=== PATIENT | female | born 1960 | race Caucasian/White ===

== ENCOUNTER 2019-01-20 06:18 | Inpatient (IN) | payer OTHER ==
--- NOTE | 2019-01-19 06:51 | PREOPHP ---
DATE OF ADMISSION: 01/20/2019 HISTORY OF PRESENT ILLNESS: ____ a 57-year-old female, 3, para 3, abortions 1 with 3 living children. The patient had a set of twins. This patient was referred to me due to a failed bladder p rolapse repair that was done 3 years ago. She is experiencing urgency and she has been using a pessa ry for 4 to 5 years. She is having pelvic pressure, pelvic pain. Her uterus is nonprolapsed and she works standing up. She would like to not have to use a pessary and have her problem surgically fixe d. The patient has a history of a and hypertension and an ectopic at which time she had an exploratory laparotomy and that was her . ALLERGIES: THE PATIENT IS NOT ALLERGIC TO ANY MEDICATIONS. MEDICATIONS: She takes Norvasc 5 mg for her hypertension and that controlled her blood pressure. FAMILY HISTORY: Diabetes, hypertension in both parents. REVIEW OF SYSTEMS: Negative for cardiovascular event as heart attack, negative for lung disease, no GI disease, no endocrine disease. SOCIAL HISTORY: No history of drugs, smoking or drinking. PHYSICAL EXAMINATION: VITAL SIGNS: The patient's ____ is good. Blood pressure is 150/80. She weighs 158 and she is 5 fee t 1 inch. The patient is afebrile. HEAD AND NECK: Normal. CHEST: Clear. HEART: Normal sinus rhythm. LUNGS: Clear. BREASTS: Soft, nontender, no masses. ABDOMEN: Soft, nontender, no masses. GENITALIA: With a large ____ and vaginal atrophy. Uterus normal in size, nonprolapsed, and she has a rectocele, that is mild, with some constipation. EXTREMITIES: Normal. DIAGNOSES: 1. 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 2. Rectocele, mild. PLAN: She is undergoing an anterior repair ____ with a sling and a graft. The patient will be evalu ated in surgery for a posterior repair that will be decided at that time. Since her symptoms are not strong ____ she will have to come back in the future, she would rather have it done appropriately r ight now. We will see if the posterior repair is necessary or not pending relaxation of the area und er anesthesia. So, the proposed surgery is anterior repair with a sling with a graft and possible pos terior repair. She has been advised of the possible risks and possible complications of the procedur e with her alternatives and options. Written information was provided. She had no more questions an d agreed to go ahead with the procedure with full understanding and no more questions. Possible comp lications were given with the possible risks and possible complications of the sling were also explai latoya to the patient, and she agreed to go ahead with the procedure with full understanding and no more questions. Dictated By: CAMERON JJ MD [facility] Conf#: [id number] DID#: [id number]
[2019-01-19 15:38] VITALS: BMI 29.6
[~2019-01-20] VITALS: Ht 154.9 cm; Wt 69.9 kg
[2019-01-20] VITALS (22 sets, daily range): BP systolic 101–143; BP diastolic 52–72; PULSE 53–95; RESP 14–20; Ht 154.9 cm; Wt 69.9 kg
[2019-01-20] MEDS ORDERED: AMLO5TAB4 PO (06:56)
[2019-01-20] MEDS ORDERED: CIPR500T4 PO (06:56)
[2019-01-20] MEDS ORDERED: SIMV20TA PO (06:56)
[2019-01-20] MEDS ORDERED: CEFAZOLIN 2 GM/50 ML (PMX) 50 ML IVPB ONE (07:00)
--- NOTE | 2019-01-20 07:57 | HPN ---
Date/Time of Note Date/Time of Note DATE: 01/20/19 TIME: 07:57 Interval H&P Admission Note Pt. seen H&P reviewed: No system changes CAMERON JJ MD January 20, 2019 07:57
--- NOTE | 2019-01-20 07:59 | PREAC ---
Date/Time of Note Date/Time of Note DATE: 01/20/19 TIME: 07:56 Anesthesia Eval and Record Evaluation Time Pre-Procedure Interview DATE: 01/20/19 TIME: 07:56 Age 58 Sex female NPO: 8 hrs Preoperative diagnosis Gentital prolase Planned procedure Anterior- Posterior repair Past Medical History Past Medical History: Includes Cardio: Dyslipidemia GI: Morbid obesity Surgery & Anesthesia Issues No known issue Meds Anticoagulation: No Beta Prakash within 24 hr: No Reason Beta Prakash not given: Pt. not on B-Prakash Reported Medications Simvastatin* (Zocor*) 20 Mg Tablet, 20 MG PO QHS, #30 TAB 01/20/19 Amlodipine Besylate* (Norvasc*) 5 Mg Tablet, 5 MG PO DAILY, TAB 01/20/19 Ciprofloxacin Hcl* (Ciprofloxacin Hcl*) 500 Mg Tablet, 500 MG PO BID, #14 TAB 01/20/19 Meds reviewed: Yes Allergies Coded Allergies: No Known Allergy (Verified , 01/20/19) Uncoded Allergies: SPINAL ANESTHESIA (Allergy, Mild, DON'T REMEMBER, 02/15/08) Allergies Reviewed: Yes Labs/Studies Labs Reviewed: Reviewed by anesthesiologist test: N/A Studies: ECG Pre-procedure Exam Last vitals Vital Signs Date Temp Pulse Resp B/P (MAP) Pulse Ox O2 O2 Flow FiO2 Time Delivery Rate 01/20/19 97.8 95 16 143/72 98 06:20 (95) Airway: Adequate mouth opening, Adequate thyromental dist Mallampati: Mallampati II Teeth: Normal Lung: Normal Heart: Normal ASA Physical Status ASA physical status: 3 Emergency: None Planned Anesthetic General/MAC: LMA Neuraxial: Spinal Planned Pain Management Sub-arachniod narcotics, Parenteral pain med Pre-operative Attestations Prior to commencing anesthesia and surgery, the patient was re-evaluated, there was verification of: *The patient's identity *The results of appropriate recent lab work and preoperative vital signs *The above evaluation not changing prior to induction *Anesthetic plan, risk benefits, alternative and complications discussed with patient/family; questions answered; patient/family understands, accepts and wishes to proceed. ELICEO LUNA MD January 20, 2019 07:59
[2019-01-20] MEDS ORDERED: FENTAnyl 50 MCG/ML VIAL ONE (08:08)
[2019-01-20] MEDS ORDERED: morphine SULFATE/PF (10 MG/10 ML) INJ ONE (08:08)
[2019-01-20] MEDS ORDERED: MIDAZOLAM 1 MG/ML 2 ML INJ ONE (08:08)
[2019-01-20] MEDS ORDERED: BUPIVACAINE 0.25%/EPI (SDV) 30 ML INJ ONE (08:42)
[2019-01-20] MEDS ORDERED: POLYMYXIN/BACITRACIN 1L IRRIG ONE (08:42)
[2019-01-20] MEDS ORDERED: ONDANSETRON 4 MG INJ ONE (09:51)
[2019-01-20] MEDS ORDERED: CEFAZOLIN 1 GM INJ ONE (09:51)
[2019-01-20] MEDS ORDERED: LIDOCAINE 2% (SDV) 5 ML INJ ONE (09:51)
[2019-01-20] MEDS ORDERED: PROPOFOL 20 ML ONE (09:51)
[2019-01-20] MEDS ORDERED: ONDANSETRON 4 MG INJ IV PRN (10:00)
[2019-01-20] MEDS ORDERED: KETOROLAC 30 MG INJ IV PRN (10:00)
[2019-01-20] MEDS ORDERED: DIPHENHYDRAMINE 50 MG INJ IV PRN (10:00)
[2019-01-20] MEDS ORDERED: NALOXONE (0.4 MG/ML) INJ IV PRN (10:00)
[2019-01-20] MEDS ORDERED: METOCLOPRAMIDE 10 MG INJ IV PRN (10:00)
[2019-01-20] MEDS ORDERED: MEPERIDINE 25 MG INJ IV PRN (10:00)
[2019-01-20] MEDS ORDERED: DIPHENHYDRAMINE 50 MG CAP PO PRN (10:00)
[2019-01-20] MEDS ORDERED: HYDROmorphONE 1 MG/5 ML IV SYRINGE IV PRN ×2 (10:00)
[2019-01-20] MEDS ORDERED: ONDANSETRON INJ 6 MG in DEXTROSE 5% 50 ML IVPB PRN (10:00)
[2019-01-20] MEDS ORDERED: HYDROCODONE/APAP (5/325) TAB PO PRN ×2 (10:00)
[2019-01-20] MEDS ORDERED: FENTAnyl 50 MCG/ML VIAL IV PRN (10:00)
[2019-01-20] MEDS ORDERED: ZOLPIDEM 5 MG TAB PO PRN (10:00)
--- NOTE | 2019-01-20 10:00 | PAC ---
Date/Time of Note Date/Time of Note DATE: 01/20/19 TIME: 09:59 Post-Anesthesia Notes Post-Anesthesia Note Last documented vital signs Vital Signs Date Temp Pulse Resp B/P (MAP) Pulse Ox O2 O2 Flow FiO2 Time Delivery Rate 01/20/19 97.8 95 16 143/72 98 06:20 (95) Activity: WNL Respiratory function: WNL Cardiovascular function: WNL Mental status: Baseline Pain reasonably controlled: Yes Hydration appropriate: Yes Nausea/Vomiting absent: Yes Comments BP:118/56, P:78, Spo2:100%, T:98,8 ELICEO LUNA MD January 20, 2019 10:00
--- NOTE | 2019-01-20 10:07 | SIPON ---
Date/Time of Note Date/Time of Note DATE: 01/20/19 TIME: 10:05 Operative Report Preoperative Diagnosis Cystourethrocele grade 3-4 Mixed incontinence Mild rectocele Postoperative Diagnosis Same Operation/Procedure Performed Anterior repair OBTRYX sling and ACELL graft Cystoscopy Surgeon see signature line nurse first assist Padmini GALO Anesthesia: general Estimated blood loss: 0 - 10 ml's Transfusion Required none Specimen None Grafts/Implants none Complications none CAMERON JJ MD January 20, 2019 10:07
[2019-01-20] MEDS: METOCLOPRAMIDE 10 MG TAB PO SCH ×2 (12:12→19:53)
[2019-01-20] MEDS: KETOROLAC 30 MG INJ IV SCH ×2 (12:13→19:52)
[2019-01-20] MEDS: LACTATED RINGER'S 1,000 ML IV SCH ×3 (12:15→19:53)
--- NOTE | 2019-01-20 12:27 | OPR ---
DATE OF OPERATION: 01/20/2019 PROCEDURE: Anterior repair, Obtryx sling, ACell graft, cystoscopy. PREOPERATIVE DIAGNOSIS: Cystourethrocele grade III-IV, mixed incontinence, mild rectocele. POSTOPERATIVE DIAGNOSIS: Cystourethrocele grade III-IV, mixed incontinence, mild rectocele. SURGEON: Cameron Rowland MD GRADUATION COACH: Padmini Siu, physician budget assistant. ANESTHESIA: General. ANESTHESIOLOGIST: Dr. Becerra. COMPLICATIONS: None. PROCEDURE: The patient was given general anesthesia, placed in the lithotomy position. The perineal and vaginal area were prepped and draped, and the examination under anesthesia revealed that there i s a marked cystourethrocele and the examination under anesthesia revealed that the cystocele is grade III to IV with mixed incontinence history and with a mild rectocele. The vagina was atrophic. The vaginal retractor was applied. The Galaviz catheter was placed in the bladder and a midline incision w as made 2 cm below the urethral meatus all the way up to the vaginal cuff. The midline incision was made, injecting Xylocaine and epinephrine to separate the layers of the bladder from the anterior vag inal mucosa. The bladder was and the dissection was carried laterally to both areas of the obturator internal muscle. The fundus of the bladder was plicated with 2-0 Vicryl sutures and lifte d. At this time, the sling was localized for the insertion 2 cm below the abductor longus tendon, pa rallel to the clitoris, a gray was done on the skin. The needle was passed through the obturator mem brane, perforating it and the sling was attached to it. The arm of the sling was brought out of the obturator canal by retrieving the needle back up. This was done on the other side as well. A piece of ACell graft was placed underneath the mid urethral area and one stitch was applied to hold it in a nd 2 pieces of Surgicel on either corner. The skin was applied to the ACell graft to avoid pressure to the bladder and on the other side, the other piece of ACell graft was reapplied and also tacked to the area with a 2-0 Vicryl suture. The vagina was closed with a vertical stitch, interrupted suture s with 2-0 Vicryl. At this time, the Galaviz catheter was removed and the bladder was assessed for int actness and everything looked normal, so the Galaviz was reattached and the areas on the entrances of t he Obtryx needle were sealed with Dermabond. Xeroform gauze was left in the vagina and the Galaviz cat heter was draining well. The procedure was finished by removing all the instruments. The patient to lerated the procedure well and left the OR awake and stable. Sponge counts and instruments counts we re correct. Intravenous antibiotics were given for prophylaxis. Blood loss was minimal. The urine was clear at the end of the procedure. Dictated By: CAMERON BARAHONA/NTS Conf#: [id number] DID#: [id number] CC: PADMINI SIU PA-C;*EndCC*
[2019-01-20] MEDS: CEFAZOLIN 1 GM/50 ML (PMX) 50 ML IVPB SCH (17:55)
[2019-01-21] MEDS: CEFAZOLIN 1 GM/50 ML (PMX) 50 ML IVPB SCH ×2 (00:40→08:09)
[2019-01-21] MEDS: KETOROLAC 30 MG INJ IV SCH ×2 (00:41→05:21)
[2019-01-21] MEDS: METOCLOPRAMIDE 10 MG TAB PO SCH ×2 (00:41→05:21)
[2019-01-21] MEDS: LACTATED RINGER'S 1,000 ML IV SCH ×2 (01:51→05:22)
[2019-01-21 02:39] VITALS: BP 118/60; PULSE 70; RESP 18
[2019-01-21 07:18] VITALS: BP 112/58; PULSE 78; RESP 14
[2019-01-21] MEDS ORDERED: PHENAZOPYRIDINE 200 MG TAB PO SCH (13:00)
--- NOTE | 2019-01-21 13:03 | PD.PPDC ---
SENIOR FIRMWARE ENGINEER Discharge Instruction Condition [id number] Patient Condition: [id number] Good Diet [id number] Diet: Woztn2s Resume Regular Diet Activity/Restrictions [id number] Activity: Rbiwh9h Normal Activity May Shower [id number] Restrictions: Jlclm6e No Exercising No Lifting No Driving No Sexual Activity Nothing in the Vagina No Yulee No Tampons, douche Follow-up Follow-up with Physician: 1, Week/Weeks Return to clinic for [id number] BUILDING ESTIMATOR Instructions: Ybrmg4y Fever greater than 101 Chills Worsening abdominal pain Excessive Vaginal Bleeding More than 2 pads per hour Unable to tolerate diet CAMERON JJ MD January 21, 2019 13:03
--- NOTE | 2019-01-21 13:11 | DS ---
Date/Time of Note Date/Time of Note DATE: 01/21/19 TIME: 13:04 Discharge Summary Admission/Discharge Info Admit Date/Time January 20, 2019 at 06:18 Discharge Date/Time January 21, 2019 Discharge Diagnosis Cystourethrocele grade 3 mixed incontinence Patient Condition: Good Procedures Anterior repair with suburethral sling and graft Hx of Present Illness 58 years old female multigravida who had been referred to me for a pelvic prolapse and urinary incontinence and urgency, patient had tried medical treatment without success. She was referred to me for surgical approach She was offered a anterior and posterior repair the uterus was not prolapsed. She was given the option of sling and graft with the pros and cons and she decided to use the sling after written information was provided and all her questions were answered Hospital Course Patient underwent anterior repair with OB TR YX sling and Acell graft. She was kept overnight for observation of bleeding and to leave the packing so the tissues will go back up from detachment at the time of surgery, she did very well next day voiding She is been tolerating diet and not in pain. The packing was removed and the Galaviz catheter has been removed and we are training her bladder to see what that residual urine will be in case she needs to go home with a Galaviz catheter we will await further voidings and make a decision after. The patient otherwise is stable to go home and very happy with the results of the surgery. Laboratory testing is normal. She is supposed to see me in a week in the office, ibuprofen and Pyridium were given. She was advised to call if she has any problem either voiding with fever in pain or bleeding or problems of any sort. She will see me in 1 week otherwise or she can just call me at the number we gave her if she has any emergency. Home Meds Reported Medications Simvastatin* (Zocor*) 20 Mg Tablet, 20 MG PO QHS, #30 TAB 01/20/19 Amlodipine Besylate* (Norvasc*) 5 Mg Tablet, 5 MG PO DAILY, TAB 01/20/19 Ciprofloxacin Hcl* (Ciprofloxacin Hcl*) 500 Mg Tablet, 500 MG PO BID, #14 TAB 01/20/19 Follow-up Plan 1 week Primary Care Provider Not On Staff Doctor Time spent on discharge: < 30 minutes Pending Labs Laboratory Tests Test 01/21/19 04:42 01/21/19 07:18 White Blood Count 7.8 10^3/ul (4.8-10.8) Red Blood Count 3.96 10^6/ul (4.20-5.40) Hemoglobin 12.1 g/dl (12.0-16.0) Hematocrit 36.5 % (37.0-47.0) Mean Corpuscular Volume 92.2 fl (82.0-101.0) Mean Corpuscular Hemoglobin 30.6 pg (29.0-33.0) Mean Corpuscular 33.2 g/dl (32.0-37.0) Hemoglobin Concent Red Cell Distribution Width 12.7 % (11.5-14.5) Platelet Count 216 10^3/UL (140-415) Mean Platelet Volume 10.8 fl (7.4-10.4) Immature Granulocytes % 0.300 % (0.001-0.429) Neutrophils % 61.6 % (39.0-77.0) Lymphocytes % 26.9 % (15.0-51.0) Monocytes % 9.3 % (0.0-11.0) Eosinophils % 1.5 % (0.0-7.0) Basophils % 0.4 % (0.0-2.0) Nucleated Red Blood Cells % 0.0 /100WBC (0.0-0.0) Immature Granulocytes # 0.020 10^3/ul (0.0-0.031) Neutrophils # 4.8 10^3/ul (1.6-7.5) Lymphocytes # 2.1 10^3/ul (0.8-2.9) Monocytes # 0.7 10^3/ul (0.3-0.9) Eosinophils # 0.1 10^3/ul (0.0-0.5) Basophils # 0.0 10^3/ul (0.0-0.1) Nucleated Red Blood Cells # 0.0 10^3/ul (0.0-0.0) Sodium Level 140 mmol/L (135-144) Potassium Level 4.0 mmol/L (3.5-5.1) Chloride Level 104 mmol/L (97-110) Carbon Dioxide Level 31 mmol/L (21-31) Anion Gap 5 (5-13) Blood Urea Nitrogen 8 mg/dl (7-20) Creatinine 0.71 mg/dl (0.44-1.00) Lab Scanned Report REFERENCE LAB [id number] CAMERON JJ MD January 21, 2019 13:11
[2019-01-21 14:00] VITALS: BP 135/61; PULSE 84; RESP 14
== END 2019-01-21 20:15 | disposition home or self-care (01) | DRG 748 ==
LOC: REC 06:18 → MS1 11:05
PROVIDERS: ADMIT Obstetrics & Gynecology; ATTEND Obstetrics & Gynecology
PROC: 0TSC0ZZ Reposition Bladder Neck, Open Approach (ICD-10-PCS; 2019-01-20)
PROC: 0JUC0KZ Supplement of Pelvic Region Subcutaneous Tissue and Fascia with Nonautologous Tissue Substitute, Open Approach (ICD-10-PCS; principal; 2019-01-20 08:00)
DX: N81.10 Cystocele, unspecified (principal); N39.46 Mixed incontinence; N81.6 Rectocele; N81.89 Other female genital prolapse
CPT/HCPCS: 80051; 82565; 84520; 85025; 87086; C1771; J0690; J1885; J2250; J2274; J2405; J3010; J7120; Q4166